=== PATIENT | male | born 1950 | race African-American/Black ===

== ENCOUNTER 2017-02-12 17:00 | Inpatient (IN) | payer OTHER ==
[2017-02-12] MEDS ORDERED: MAGNESIUM SULF 50% (8.12 MEQ/2 ML-1 GM VIAL) ONE (17:11)
[2017-02-12] MEDS ORDERED: ALBUTEROL SO4 2.5/IPRATROPIUM 0.5 INH SOL 3 ML VIAL.NEB. NEB ONE ×3 (17:11→23:09)
[2017-02-12] MEDS ORDERED: DEXAMETHASONE SOD PHOSPHATE 10 MG/1 ML VIAL ONE (17:11)
--- NOTE | 2017-02-12 17:14 | PDOC ---
Attending Attestation - HPI HPI: 02/12/17 18:01 66 year old male, with PMH of asthma, HTN, and prostate cancer (s/p radiation in 2010), who presents to the emergency room BIBA complaining of shortness of breath and chest tightness. - Physicial Exam PE: 02/12/17 18:41 Constitutional: Awake, alert, oriented. No acute distress. Head: Normocephalic. Atraumatic Eyes: PERRL. EOMI. Conjunctivae are not pale. ENT: Mucous membranes are moist and intact. Posterior pharynx without exudates or erythema. Uvula midline. Neck: Supple. Full ROM. No lymphadenopathy. Cardiovascular: Regular rate. Regular rhythm. S1, S2 regular. Distal pulses are 2+ and symmetric. Pulmonary/Chest: + Diffuse wheezing bilaterally. 90% pulse Ox on room air. No evidence of respiratory distress. No rales or rhonchi. Abdominal: Soft and non-distended. There is no tenderness. No rebound, guarding or rigidity. No organomegaly. No palpable masses. Good bowel sounds. Back: No CVA tenderness. Musculoskeletal: No edema. No cyanosis. No clubbing. Full range of motion in all extremities. No calf tenderness. Radial/pedal pulses are intact and 2+ bilaterally Skin: Skin is warm and dry. No petechiae. No purpura. Neurological: Alert and oriented to person, place, and time. Cranial nerves II -XII are grossly intact. Normal speech. Strength is grossly symmetric. No sensory deficits. Psychiatric: Good eye contact. Normal interaction, affect and behavior. <Maureen Hooker - Last Filed: 02/12/17 18:41> - Resident Resident Name: Neha Rudolph - ED Attending Attestation I have performed the following: I have examined & evaluated the patient, The case was reviewed & discussed with the resident, I agree w/resident's findings & plan, Exceptions are as noted - Medical Decision Making 02/12/17 17:14 I, Dr. Pretty Rivers, DO, attest that this document has been prepared under my direction and personally reviewed by me in its entirety. I further attest, that it accurately reflects all work, treatment, procedures and medical decision -making performed by me. 02/12/17 18:37 a/p: 66yo male with wheezing -hx of asthma and exposure to bleach today -received 2 duonebs, steroids, mag [employer] -low pulse ox and wheezing still present -will give another neb, received decadron 10mg [employer] -ivf hydration, will check labs, ekg, cxr -reassess 02/12/17 21:06 re-eval: pulse ox still 92 RA, still with wheezing poss early pna on xray, elevated WBC, will start abx, will need more nebs. will keep for obs 02/12/17 21:33 case discussed with the IM resident who accepts the patient to obs under Dr. Quiñones. <Pretty Rivers - Last Filed: 02/12/17 21:34> Discharge Disposition <Maureen Hooker - Last Filed: 02/12/17 18:41> - Discharge Dispostion Admit: Yes <Pretty Rivers - Last Filed: 02/12/17 21:34> - Diagnosis Shortness of breath, Asthma exacerbation - Discharge Dispostion Condition at time of disposition: Fair - Referrals Referrals: Sofi Jacob MD, MD [Primary Care Provider] - - Patient Instructions - Post Discharge Activity Heart Score/ECG Review - ECG Intrepretation Comment:: 02/12/17 18:39 sinus at 66, nl axis, nl interval, t wave inversions v2, no other acute <Pretty Rivers - Last Filed: 02/12/17 21:34>
[2017-02-12 17:22] VITALS: BMI 24.3
[2017-02-12] MEDS ORDERED: SODIUM CHLORIDE 0.9% 1000 ML INFUS.BAG IV ONE (17:49)
--- NOTE | 2017-02-12 17:49 | PDOC ---
History of Present Illness - General Chief Complaint: Asthma Stated Complaint: DIFF. BREATHING Time Seen by Provider: 02/12/17 17:11 History Source: Patient Exam Limitations: No Limitations - History of Present Illness Initial Comments: This is a 66 YOM with h/o asthma (triggers chemicals and allergies, no intubations/admissions/steroids in the past, no regular meds), HTN, and prostate CA s/p radiation in 2010, who was BIBA for SOB, wheezing, and bilateral chest tightness worsening since 3:30 pm. He used bleach to clean a bathroom this morning at 11:30am, which has been one of his asthma triggers in the past, but usually he has only mild and self-limited symptoms. He took no medications at home for his symptoms (ran out of albuterol long ago). He has not had an exacerbation this bad in decades. He has recently had symptoms of post-nasal drip, sneezing, and mild allergies but he denies any chest pain, jaw pain, arm pain, abdominal pain, palpitations, headache, dizziness, leg swelling , unexplained change in weight, fever, chills, nausea, vomiting, or diarrhea. He is followed by his PMD whom he last saw 2 months ago. Past History - Past Medical History Allergies/Adverse Reactions: Allergies Allergy/AdvReac Type Severity Reaction Status Date / Time No Known Allergies Allergy Verified 02/12/17 17:10 Home Medications: Ambulatory Orders Nifedipine [Procardia Xl] 60 mg PO DAILY 02/12/17 Albuterol Sulfate Inhaler - [Ventolin HFA Inhaler -] 1 - 2 inh PO Q4H PRN #1 inhaler 02/15/17 Prednisone 10 mg PO DAILY #16 tablet 02/15/17 Asthma: Yes COPD: No HTN: Yes - Suicide/Smoking/Psychosocial Hx Smoking History: Never smoked Hx Alcohol Use: No Drug/Substance Use Hx: No Substance Use Type: None Review of Systems - Review of Systems Constitutional: No: Chills, Fever, Unexplained wgt Loss HEENTM: Yes: Other (post-nasal drip, sneezing, allergies). No: Nose Congestion , Throat Pain Respiratory: Yes: Shortness of Breath, Wheezing. No: Cough Cardiac (ROS): Yes: Chest Tightness. No: Palpitations ABD/GI: No: Constipated, Diarrhea, Nausea, Vomiting : No: Burning, Dysuria Musculoskeletal: No: Back Pain, Neck Pain Integumentary: No: Bruising, Rash Neurological: No: Headache, Numbness, Tingling, Weakness, Dizziness Endocrine: No: Unexplained Weight Gain, Unexplained Weight Loss *Physical Exam - Vital Signs Last Vital Signs Temp Pulse Resp BP Pulse Ox 98.1 F 80 18 168/78 100 02/12/17 17:12 02/12/17 17:12 02/12/17 17:12 02/12/17 17:12 02/12/17 17:12 - Physical Exam General Appearance: Yes: Nourished, Appropriately Dressed, Other (conversive and appropriate, answering questions, no significant respiratory distress). No : Apparent Distress HEENT: positive: EOMI, ANGELA, Normal Voice, Hearing Grossly Normal. negative: Scleral Icterus (R), Scleral Icterus (L), Nasal Congestion Neck: positive: Trachea midline, Supple. negative: Tender, Rigid Respiratory/Chest: positive: Other (pulse oxygenation 90% on 2 LPM via NC initially; improves to 94% on NC; bilateral expiratory wheezing with L>R, slightly tachypneic). negative: Chest Tender, Normal Breath Sounds, Respiratory Distress Cardiovascular: positive: Regular Rhythm, Regular Rate. negative: Edema, Murmur Gastrointestinal/Abdominal: positive: Normal Bowel Sounds, Soft, Protuberent. negative: Tender, Organomegaly, Pulsatile Mass, Guarding Musculoskeletal: positive: Normal Inspection. negative: Decreased Range of Motion, Vertebral Tenderness Extremity: positive: Normal Capillary Refill, Normal Inspection, Normal Range of Motion. negative: Tender, Cyanosis Integumentary: positive: Normal Color, Dry, Warm, Swelling (grossly). 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 Rarely uses albuterol and did not use any medications for asthma today. Given 2x breathing treatments and Decadron in the field. Given Prednisone PO as well. On exam he is 90% on 2 LPM and wheezy on L>R. Ordered is additional DuoNeb, also CBC, CMP, EKG, CXR. No acute disease process on EKG. Care is signed out to Dr. Dumont awaiting workup results. *DC/Admit/Observation/Transfer Diagnosis at time of Disposition: Shortness of breath - Prescriptions - Referrals - Patient Instructions - Post Discharge Activity
[2017-02-12 18:33] LABS: MCH 28.7 pg (25.7-33.7); MCHC 32.5 g/dl (32.0-35.9); MEAN CELL VOLUME 88.4 fl (80-96); MEAN PLT VOLUME 11.5 fl (7.5-11.1); PLATELET COUNT 133 K/MM3 (134-434); RDW 13.8 % (11.9-15.9); WHITE BLOOD COUNT 15.4 K/mm3 (4.0-10.0)
[2017-02-12] MEDS ORDERED: ALBUTEROL SO4 0.5 % INH SOLN 2.5 MG/0.5 ML VIAL.NEB. NEB ONE (19:06)
[2017-02-12 19:12] LABS: ALBUMIN 4.1 g/dl (3.4-5.0); ANION GAP 8 (8-16); BILIRUBIN,TOTAL 0.8 mg/dL (0.2-1.0); CALCIUM 8.6 mg/dL (8.5-10.1); CO2 27 mmol/L (21-32); CREATININE 0.7 mg/dL (0.7-1.3); GLUCOSE,RANDOM 142 mg/dL (74-106); SGOT/AST 20 U/L (15-37); SGPT/ALT 26 U/L (12-78); TOT PROT 7.9 g/dl (6.4-8.2)
[2017-02-12 19:13] LABS: ALK PHOS 92 U/L (45-117)
[2017-02-12] MEDS ORDERED: ALBUTEROL SO4 0.083% IH SOL 2.5 MG/3 ML VIAL.NEB. NEB ONE ×2 (19:18→21:07)
[2017-02-12 19:41] LABS: TOTAL CELLS COUNTED 100
[2017-02-12 19:43] LABS: PLATELET ESTIMATE SLT DECREASE
[2017-02-12] MEDS ORDERED: LEVOFLOXACIN 750 MG IVPB 750 MG/150 ML BAG IVPB ONE ×2 (19:55→21:11)
--- NOTE | 2017-02-12 21:59 | HP ---
CHIEF COMPLAINT: SOB and chest tightness x1 day PCP: Dr Phillips ([facility])- HISTORY OF PRESENT ILLNESS: 66 year old male, with PMH of asthma, HTN, and prostate cancer (s/p radiation in 2010), presenting with SOB and chest tightness. Patient noticed worsening chest tightness and SOB similar to what he experiences during his asthma exacerbations, after cleaning the bathroom and inhaling bleach. He had associated cough, productive of yellowish substance, non bloody. The SOB was not relieved by position, lasted for a couple of hours prior to presentation. No associated chest pain, no associated leg swelling, or fever, no recent sick contacts. No n/v/ change in bowel habits. Patient had been out in the rain 3 days earlier and had a mild precipitation that resolved on its own, without medications, but today, it did not resolve on its own. Patient has had mild asthma with his last exacerbation in September 2016 (relieved with inhaler) and prior to that, December 2015. Patient is currently not compliant on any medication. Patient has not received flu vaccine or pnuemococcal vaccine and has never had colonoscopy done. ER course was notable for: (1) WBC- 15.4, with left shift (2)CXR- not read, likely R lower lung infiltrate (3) iv Levoflox, Duonebs, ventolin, Mg, iv decadron -given in ED 4) EKG- Normal sinus rhythm, [id number] Recent Travel: None PAST MEDICAL HISTORY: asthma HTN prostate cancer (s/p radiation in 2010) PAST SURGICAL HISTORY: Social History: Lives with Smoking: Never Alcohol: Never Drugs: Never Family History: Mother in her 60s of asthma Father at 92 was healthy Allergies No Known Allergies Allergy (Verified 02/12/17 17:10) HOME MEDICATIONS: Home Medications Medication Instructions Recorded Nifedipine [Procardia Xl] 60 mg PO DAILY 02/12/17 REVIEW OF SYSTEMS CONSTITUTIONAL: Absent: fever, chills, diaphoresis, generalized weakness, malaise, loss of appetite, weight change HEENT: Absent: rhinorrhea, nasal congestion, throat pain, throat swelling, difficulty swallowing, mouth swelling, ear pain, eye pain, visual changes CARDIOVASCULAR: Absent: chest pain, syncope, palpitations, irregular heart rate, lightheadedness , peripheral edema RESPIRATORY: Absent: cough, shortness of breath, dyspnea with exertion, orthopnea, wheezing, stridor, hemoptysis GASTROINTESTINAL: Absent: abdominal pain, abdominal distension, nausea, vomiting, diarrhea, constipation, melena, hematochezia GENITOURINARY: Absent: dysuria, frequency, urgency, hesitancy, hematuria, flank pain, genital pain MUSCULOSKELETAL: Absent: myalgia, arthralgia, joint swelling, back pain, neck pain SKIN: Absent: rash, itching, pallor HEMATOLOGIC/IMMUNOLOGIC: Absent: easy bleeding, easy bruising, lymphadenopathy, frequent infections ENDOCRINE: Absent: unexplained weight gain, unexplained weight loss, heat intolerance, cold intolerance NEUROLOGIC: Absent: headache, focal weakness or paresthesias, dizziness, unsteady gait, seizure, mental status changes, bladder or bowel incontinence PSYCHIATRIC: Absent: anxiety, depression, suicidal or homicidal ideation, hallucinations. PHYSICAL EXAMINATION Vital Signs - 24 hr 02/12/17 02/12/17 17:12 18:28 Temperature 98.1 F Pulse Rate 80 Pulse Rate [ 85 Apical] Respiratory 18 18 Rate Blood Pressure 168/78 Blood Pressure 160/82 [Left Arm] O2 Sat by Pulse 100 98 Oximetry (%) GENERAL: Awake, alert, and fully oriented, in no acute respiratory distress, spoke in full sentences. EYES: Pupils equal, round and reactive to light, sclera anicteric, conjunctiva clear. EARS, NOSE, THROAT: Ears normal, oropharynx clear without exudates. Moist mucous membranes. NECK: supple, no JVD. LUNGS: Breath sounds present, expiratory wheezes+, HEART: Regular rate and rhythm, normal S1 and S2 without murmur, rub or gallop. ABDOMEN: Soft, nontender, not distended, normoactive bowel sounds, MUSCULOSKELETAL: Normal range of motion at all joints. No bony deformities or tenderness. No CVA tenderness. UPPER EXTREMITIES: 2+ pulses, warm, well-perfused. No cyanosis. No clubbing. No peripheral edema. LOWER EXTREMITIES: 2+ pulses, warm, well-perfused. No calf tenderness. No peripheral edema. NEUROLOGICAL: Cranial nerves II-XII intact. Normal speech. Gait not observed PSYCHIATRIC: Cooperative. Good eye contact. Appropriate mood and affect. SKIN: Warm, dry, Laboratory Results - last 24 hr 02/12/17 02/12/17 18:14 18:14 WBC 15.4 H RBC 4.65 Hgb 13.4 Hct 41.1 MCV 88.4 MCH 28.7 MCHC 32.5 RDW 13.8 Plt Count 133 L MPV 11.5 H Total Counted 100 Neutrophils % No Result Required. Neutrophils % (Manual) 90.0 H Band Neutrophils % 6.0 Lymphocytes % No Result Required. Lymphocytes % (Manual) 2.0 L Monocytes % (Manual) 2 L Other Cell Type Platelet Estimate Slt decrease Platelet Comment Sodium 137 Potassium 3.9 Chloride 102 Carbon Dioxide 27 Anion Gap 8 BUN 8 Creatinine 0.7 Creat Clearance w eGFR > 60 Random Glucose 142 H Calcium 8.6 Total Bilirubin 0.8 AST 20 ALT 26 Alkaline Phosphatase 92 Total Protein 7.9 Albumin 4.1 ASSESSMENT/PLAN: 66 year old male, with PMH of asthma, HTN, and prostate cancer (s/p radiation in 2010), presenting with SOB and chest tightness being admitted for asthma exacerbation. #Acute asthma exacerbation: Scattered Expiratory wheezes Iv solumedrol 40mg daily Ventolin nebs 0.083% Q1H Duonebs daily Resp therapy Daily peak flow IV Levoflox 750mg Monitor #Leucocytosis R/O superimposed PNA Productive cough Sputum culture Flu swab Blood culture #HTN Has not been compliant on procardia Resume procardia 60mg daily #Ca prostate Received radiation therapy No new C/o #FEN Oral fluids Monitor lytes and replete as needed Low sodium diet #Prophylaxis Early ambulation #Dispo Obs med Surg Visit type - Emergency Visit Emergency Visit: Yes ED Registration Date: 02/12/17 Care time: The patient presented to the Emergency Department on the above date and was hospitalized for further evaluation of their emergent condition. - New Patient This patient is new to me today: Yes Date on this admission: 02/13/17 - Critical Care Critical Care patient: No
[2017-02-12] MEDS ORDERED: ALBUTEROL SO4 0.083% IH SOL 2.5 MG/3 ML VIAL.NEB. NEB PRN (23:08)
[2017-02-12] MEDS ORDERED: methylPREDNISolone NA SUCC 40 MG/1 ML VIAL IVPUSH SCH (23:45)
--- NOTE | 2017-02-13 00:51 | PN ---
Teaching Attending Note Name of Resident: Caterina Olivarez ATTENDING PHYSICIAN STATEMENT I saw and evaluated the patient. I reviewed the resident's note and discussed the case with the resident. I agree with the resident's findings and plan as documented. SUBJECTIVE: 66 year old male with life long history of asthma presents with sob , wheezing and cough x 4 days No fevers Denies prior history of intubations does not use any meds for asthma control OBJECTIVE: Vital Signs Temperature 98.1 F 02/12/17 17:12 Pulse Rate 85 02/12/17 18:28 Respiratory Rate 18 02/12/17 18:28 Blood Pressure 160/82 02/12/17 18:28 O2 Sat by Pulse Oximetry (%) 98 02/12/17 18:28 LUNGS - wheezing b/l EXT no edema Abd soft NT CBC, BMP 02/12/17 18:14 02/12/17 18:14 CXR RLL infiltrate ASSESSMENT AND PLAN: 1. Acute exacerbation of asthma with superimposed RLL CAP - steroids IV - peak flow daily - IVAB - O2 2. HTN - suboptimal - resume procardia and monitor BP
[2017-02-13 05:39] LABS: BASOPHIL 0.2 % (0-2.0); MCHC 32.5 g/dl (32.0-35.9); MEAN CELL VOLUME 89.4 fl (80-96); MEAN PLT VOLUME 11.6 fl (7.5-11.1); NEUTROPHILS 86.9 % (42.8-82.8); PLATELET COUNT 135 K/MM3 (134-434); RDW 13.5 % (11.9-15.9); WHITE BLOOD COUNT 12.4 K/mm3 (4.0-10.0)
[2017-02-13] MEDS ORDERED: ALBUTEROL SO4 2.5/IPRATROPIUM 0.5 INH SOL 3 ML VIAL.NEB. NEB ONE (06:07)
[2017-02-13 06:15] LABS: ALBUMIN 3.7 g/dl (3.4-5.0); ANION GAP 11 (8-16); BILIRUBIN,TOTAL 0.6 mg/dL (0.2-1.0); CALCIUM 8.7 mg/dL (8.5-10.1); CO2 23 mmol/L (21-32); CREATININE 0.8 mg/dL (0.7-1.3); GLUCOSE,RANDOM 136 mg/dL (74-106); MAGNESIUM 2.4 mg/dL (1.8-2.4); PHOSPHOROUS 2.2 mg/dL (2.5-4.9); SGOT/AST 24 U/L (15-37); SGPT/ALT 25 U/L (12-78); TOT PROT 7.5 g/dl (6.4-8.2)
[2017-02-13 06:16] LABS: ALK PHOS 82 U/L (45-117)
[2017-02-13] MEDS ORDERED: LEVOFLOXACIN 750 MG IVPB 750 MG/150 ML BAG IVPB ONE (06:29)
[2017-02-13] MEDS ORDERED: ALBUTEROL SO4 2.5/IPRATROPIUM 0.5 INH SOL 3 ML VIAL.NEB. NEB PRN (06:43)
[2017-02-13] MEDS ORDERED: methylPREDNISolone NA SUCC 40 MG/1 ML VIAL IVPUSH SCH ×2 (06:45→08:11)
[2017-02-13] MEDS ORDERED: methylPREDNISolone NA SUCC 40 MG/1 ML VIAL ONE (07:05)
[2017-02-13] MEDS ORDERED: LEVOFLOXACIN 750 MG IVPB 750 MG/150 ML BAG IVPB SCH (08:00)
[2017-02-13] MEDS: NIFEdipine E.R 60 MG TABLET (UD) PO SCH (09:26)
[2017-02-13] MEDS ORDERED: FLU VACCINE QUAD 60 MCG/0.5 ML (MDV 17-18) IM ONE (10:00)
--- NOTE | 2017-02-13 10:04 | EKG ---
Test Reason : Blood Pressure : / mmHG Vent. Rate : 068 BPM Atrial Rate : 068 BPM P-R Int : 162 ms QRS Dur : 094 ms QT Int : 398 ms P-R-T Axes : 044 -16 056 degrees QTc Int : 423 ms NORMAL SINUS RHYTHM NORMAL ECG NO PREVIOUS ECGS AVAILABLE Confirmed by DENIA COVINGTON MD ([id number]) on 02/13/2017 10:04:00 AM Referred By: Confirmed By:DENIA COVINGTON MD
--- NOTE | 2017-02-13 10:35 | CONSULT ---
Consultation: Pulmonary consult, resident REQUESTING PROVIDER: Dominga Olsen Do CONSULT REQUEST: We have been asked to medically evaluate this patient for ( Asthma exacerbation ). HISTORY OF PRESENT ILLNESS: This is a 66 YO M with h/o asthma (triggers chemicals and allergies, no intubations/admissions/steroids in the past, no regular meds), HTN, and prostate CA s/p radiation in 2010, who was BIBA for SOB, wheezing, and bilateral chest tightness worsening since 3:30 pm. He used bleach to clean a bathroom this morning at 11:30am, which has been one of his asthma triggers in the past, but usually he has only mild and self-limited symptoms. He took no medications at home for his symptoms (ran out of albuterol long ago). He has not had an exacerbation this bad in decades. He has recently had symptoms of post-nasal drip, sneezing, and mild allergies but he denies any chest pain, jaw pain, arm pain, abdominal pain, palpitations, headache, dizziness, leg swelling , unexplained change in weight, fever, chills, nausea, vomiting, or diarrhea. He is followed by his PMD whom he last saw 2 months ago. REVIEW OF SYSTEMS: CONSTITUTIONAL: Absent: fever, chills, diaphoresis, generalized weakness, malaise, loss of appetite, weight change HEENT: Absent: rhinorrhea, nasal congestion, throat pain, throat swelling, difficulty swallowing, mouth swelling, ear pain, eye pain, visual changes CARDIOVASCULAR: Absent: chest pain, syncope, palpitations, irregular heart rate, lightheadedness , peripheral edema RESPIRATORY: Absent: cough, shortness of breath, dyspnea with exertion, orthopnea, wheezing, stridor, hemoptysis GASTROINTESTINAL: Absent: abdominal pain, abdominal distension, nausea, vomiting, diarrhea, constipation, melena, hematochezia GENITOURINARY: Absent: dysuria, frequency, urgency, hesitancy, hematuria, flank pain, genital pain MUSCULOSKELETAL: Absent: myalgia, arthralgia, joint swelling, back pain, neck pain SKIN: Absent: rash, itching, pallor HEMATOLOGIC/IMMUNOLOGIC: Absent: easy bleeding, easy bruising, lymphadenopathy, frequent infections ENDOCRINE: Absent: unexplained weight gain, unexplained weight loss, heat intolerance, cold intolerance NEUROLOGIC: Absent: headache, focal weakness or paresthesias, dizziness, unsteady gait, seizure, mental status changes, bladder or bowel incontinence PSYCHIATRIC: Absent: anxiety, depression, suicidal or homicidal ideation, hallucinations. PHYSICAL EXAMINATION Vital Signs - 24 hr 02/12/17 02/12/17 02/12/17 17:12 18:28 23:06 Temperature 98.1 F Pulse Rate 80 Pulse Rate [ 85 Apical] Respiratory 18 18 18 Rate Blood Pressure 168/78 Blood Pressure 160/82 [Left Arm] O2 Sat by Pulse 100 98 98 Oximetry (%) 02/13/17 02/13/17 02/13/17 00:24 06:46 08:19 Temperature 98.7 F 98.3 F 97.8 F Pulse Rate Pulse Rate [ 72 67 76 Apical] Respiratory 18 18 18 Rate Blood Pressure Blood Pressure 147/77 138/62 139/54 [Left Arm] O2 Sat by Pulse 99 98 Oximetry (%) GENERAL: Awake, alert, and fully oriented, in no acute distress. HEAD: Normal with no signs of trauma. EYES: Pupils equal, round and reactive to light, extraocular movements intact, sclera anicteric, conjunctiva clear. No lid lag. EARS, NOSE, THROAT: Ears normal, nares patent, oropharynx clear without exudates. Moist mucous membranes. NECK: Normal range of motion, supple without lymphadenopathy, JVD, or masses. LUNGS: Breath sounds equal, clear to auscultation bilaterally. No wheezes, and no crackles. No accessory muscle use. HEART: Regular rate and rhythm, normal S1 and S2 without murmur, rub or gallop. ABDOMEN: Soft, nontender, not distended, normoactive bowel sounds, no guarding, no rebound, no masses. No hepatomegaly or splenomegaly. MUSCULOSKELETAL: Normal range of motion at all joints. No bony deformities or tenderness. No CVA tenderness. UPPER EXTREMITIES: 2+ pulses, warm, well-perfused. No cyanosis. No clubbing. Cap refill <2 seconds. No peripheral edema. LOWER EXTREMITIES: 2+ pulses, warm, well-perfused. No calf tenderness. No peripheral edema. NEUROLOGICAL: Cranial nerves II-XII intact. Normal speech. Normal gait. PSYCHIATRIC: Cooperative. Good eye contact. Appropriate mood and affect. SKIN: Warm, dry, normal turgor, no rashes or lesions noted. Laboratory Results - last 24 hr 02/12/17 02/12/17 02/13/17 18:14 18:14 05:15 WBC 15.4 H 12.4 H RBC 4.65 4.50 Hgb 13.4 13.1 Hct 41.1 40.2 MCV 88.4 89.4 MCH 28.7 29.0 MCHC 32.5 32.5 RDW 13.8 13.5 Plt Count 133 L 135 MPV 11.5 H 11.6 H Total Counted 100 Neutrophils % No Result Required. 86.9 H Neutrophils % (Manual) 90.0 H Band Neutrophils % 6.0 Lymphocytes % No Result Required. 7.6 L Lymphocytes % (Manual) 2.0 L Monocytes % 5.3 Monocytes % (Manual) 2 L Eosinophils % 0.0 Basophils % 0.2 Other Cell Type Platelet Estimate Slt decrease Platelet Comment Sodium 137 Potassium 3.9 Chloride 102 Carbon Dioxide 27 Anion Gap 8 BUN 8 Creatinine 0.7 Creat Clearance w eGFR > 60 Random Glucose 142 H Calcium 8.6 Phosphorus Magnesium Total Bilirubin 0.8 AST 20 ALT 26 Alkaline Phosphatase 92 Total Protein 7.9 Albumin 4.1 02/13/17 05:15 WBC RBC Hgb Hct MCV MCH MCHC RDW Plt Count MPV Total Counted Neutrophils % Neutrophils % (Manual) Band Neutrophils % Lymphocytes % Lymphocytes % (Manual) Monocytes % Monocytes % (Manual) Eosinophils % Basophils % Other Cell Type Platelet Estimate Platelet Comment Sodium 139 Potassium 3.7 Chloride 105 Carbon Dioxide 23 Anion Gap 11 BUN 10 D Creatinine 0.8 Creat Clearance w eGFR > 60 Random Glucose 136 H Calcium 8.7 Phosphorus 2.2 L Magnesium 2.4 Total Bilirubin 0.6 D AST 24 ALT 25 Alkaline Phosphatase 82 Total Protein 7.5 Albumin 3.7 Active Medications Generic Name Dose Route Start Last Admin Trade Name Freq PRN Reason Stop Dose Admin Albuterol Sulfate 1 amp 02/12/17 23:08 02/13/17 03:53 Ventolin 0.083% Nebulizer Soln - NEB 1 amp Q1H PRN Administration SHORT OF BREATH/WHEEZING Albuterol/Ipratropium 1 amp 02/13/17 06:43 02/13/17 07:43 Duoneb - NEB 1 amp Q4H PRN Administration SHORTNESS OF BREATH Levofloxacin 750 mg in 150 mls @ 100 mls/hr 02/13/17 08:00 02/13/17 08:09 Levaquin 750 Mg Premixed Ivpb - IVPB 02/14/17 07:59 100 mls/hr DAILY@0800 DALTON Administration Methylprednisolone Sodium Succinate 40 mg 02/13/17 08:11 02/13/17 09:23 Solu-Medrol - IVPUSH Not Given BID DALTON Nifedipine 60 mg 02/13/17 10:00 02/13/17 09:26 Procardia Xl - PO 60 mg DAILY DALTON Administration CBC, BMP 02/13/17 05:15 02/13/17 05:15 CXR, 02/13/2017 : No acute pathology, no masses, no hilar lymphadenopathy. ASSESSMENT/PLAN: STEROIDS/BRONCHODILATORS/O2 CLOSE MONITORING NO NEED FOR ANTIBIOTICS Dispo: We will continue to follow the patient. Thank you for this consultative opportunity. Visit type - Emergency Visit Emergency Visit: Yes ED Registration Date: 02/13/17 Care time: The patient presented to the Emergency Department on the above date and was hospitalized for further evaluation of their emergent condition. - New Patient This patient is new to me today: Yes Date on this admission: 02/13/17 - Critical Care Critical Care patient: No
--- NOTE | 2017-02-13 17:08 | CON.PULM ---
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 PRESENTST TO ER WITH COUGH/WHEEZE/SOB AFTER CLEANING HIS BATHROOM WITH AMMONIA WITHOUT PROPER VENTILATION AND NOTED ABOVE SYMPTOMS. - History Source History Provided By: Patient, Medical Record Limitations to Obtaining History: No Limitations - Past Medical History BUSINESS BANKER: No: Alzheimer's Cardio/Vascular: Yes: HTN. No: AFIB Pulmonary: Yes: Asthma Gastrointestinal: No: Ascites Hepatobiliary: No: Cirrhosis Renal/: No: Renal Failure Heme/Onc: No: Anemia Infectious Disease: No: AIDS Psych: No: Addictions Musculoskeletal: No: Bursitis Rheumatology: No: Fibromyalgia ENT: No: Allergic Rhinitis Endocrine: No: Diabetes Mellitus - Past Surgical History Past Surgical History: Yes: None (PATIENT HAD XRT FOR PROSTATE CA) - Alcohol/Substance Use Hx Alcohol Use: No - Smoking History Smoking history: Never smoked Have you smoked in the past 12 months: No - Social History Usual Living Arrangement: With Spouse ADL: Independent Place of : Other History of Recent Travel: No Home Medications - Allergies Allergies/Adverse Reactions: Allergies Allergy/AdvReac Type Severity Reaction Status Date / Time No Known Allergies Allergy Verified 02/12/17 17:10 - Home Medications Home Medications: Ambulatory Orders Nifedipine [Procardia Xl] 60 mg PO DAILY 02/12/17 Family Disease History - Family Disease History Family History: Unremarkable Review of Systems - Review of Systems Constitutional: denies: Fever Eyes: denies: Blurred Vision HENT: denies: Difficult Swallowing Neck: denies: Decreased ROM Cardiovascular: denies: Chest Pain Respiratory: reports: Cough, Exercise Intolerance, SOB, SOB on Exertion, Wheezing. denies: Hemoptysis Gastrointestinal: denies: Abdominal Pain Physical Exam Vital Sings: Vital Signs Temperature 97.8 F 02/13/17 13:17 Pulse Rate 90 02/13/17 15:55 Respiratory Rate 18 02/13/17 15:55 Blood Pressure 134/78 02/13/17 15:55 O2 Sat by Pulse Oximetry (%) 99 02/13/17 15:55 Constitutional: Yes: Anxious Eyes: Yes: EOM Intact HENT: Yes: Normocephalic Neck: Yes: Trachea Midline Cardiovascular: Yes: Regular Rate and Rhythm Respiratory: Yes: Wheezes Gastrointestinal: Yes: Normal Bowel Sounds Renal/: Yes: WNL Breast(s): Yes: WNL Musculoskeletal: Yes: WNL Extremities: Yes: WNL Neurological: Yes: Alert Labs: CBC, BMP 02/13/17 05:15 02/13/17 05:15 REST REVIEWED Imaging - Results Chest X-ray: Report Reviewed, Image Reviewed Problem List - Problems (1) Bronchiolitis Code(s): J21.9 - ACUTE BRONCHIOLITIS, UNSPECIFIED (2) Asthma exacerbation Code(s): J45.901 - UNSPECIFIED ASTHMA WITH (ACUTE) EXACERBATION Assessment/Plan STEROIDS/BRONCHODILATORS/O2 CLOSE MONITORING NO NEED FOR ANTIBIOTICS Maximino RODRIGUEZ MD
[2017-02-13] MEDS: ALBUTEROL SO4 2.5/IPRATROPIUM 0.5 INH SOL 3 ML VIAL.NEB. NEB SCH ×2 (18:18→22:30)
[2017-02-13] MEDS ORDERED: PNEUMOC 13-VAL CONJ-DIP CRM/PF 0.5 ML DISP.SYRIN IM ONE (18:28)
[2017-02-13] MEDS: methylPREDNISolone NA SUCC 40 MG/1 ML VIAL IVPUSH SCH ×2 (18:35→21:33)
[2017-02-14] MEDS: ALBUTEROL SO4 2.5/IPRATROPIUM 0.5 INH SOL 3 ML VIAL.NEB. NEB SCH ×6 (02:30→23:25)
[2017-02-14] MEDS: methylPREDNISolone NA SUCC 40 MG/1 ML VIAL IVPUSH SCH ×4 (03:58→20:46)
[2017-02-14] MEDS: NIFEdipine E.R 60 MG TABLET (UD) PO SCH ×2 (08:48→09:14)
--- NOTE | 2017-02-14 11:20 | PN ---
Progress Note (short form) - Note Progress Note: PULMONARY VSS/AFEBRILE SUBJECTIVE IMPROVEMENT WANTS TO GO HOME ANICTERIC BIBASILAR EXP RHONCHI S1S2 BS+ NO EDEMA MEDS/NOTES/MICRO REVIEWED PEAK FLOW 240L/M (1) Bronchiolitis Code(s): J21.9 - ACUTE BRONCHIOLITIS, UNSPECIFIED (2) Asthma exacerbation Code(s): J45.901 - UNSPECIFIED ASTHMA WITH (ACUTE) EXACERBATION STEROIDS SAME DOSE/BRONCHODILATORS/O2 CLOSE MONITORING/PEAK FLOW NO NEED FOR ANTIBIOTICS LIKELY D/C IN AM R JENNIFER LAWRENCE Problem List - Problems (1) Bronchiolitis Code(s): J21.9 - ACUTE BRONCHIOLITIS, UNSPECIFIED (2) Asthma exacerbation Code(s): J45.901 - UNSPECIFIED ASTHMA WITH (ACUTE) EXACERBATION
--- NOTE | 2017-02-14 15:22 | PN ---
Progress Note (short form) - Note Progress Note: c/o cough. today became productive of yellow sputum. states he has trouble breathing during his coughing episodes. no CP, fever,chills, N/V/C/D, RIDDLE or blurred vision states he has never been hospitalized for asthma symptoms Current Medications Generic Name Dose Route Start Last Admin Trade Name Freq PRN Reason Stop Dose Admin Albuterol Sulfate 1 amp 02/12/17 23:08 02/13/17 03:53 Ventolin 0.083% Nebulizer Soln - NEB 1 amp Q1H PRN Administration SHORT OF BREATH/WHEEZING Albuterol/Ipratropium 1 amp 02/13/17 18:00 02/14/17 10:26 Duoneb - NEB 1 amp Q4HPO DALTON Administration Methylprednisolone Sodium Succinate 40 mg 02/13/17 17:00 02/14/17 08:48 Solu-Medrol - IVPUSH 40 mg Q6H-IV DALTON Administration Nifedipine 60 mg 02/13/17 10:00 02/14/17 09:14 Procardia Xl - PO Not Given DAILY DALTON Last Vital Signs Temp Pulse Resp BP Pulse Ox 99.3 F 118 H 20 151/76 93 L 02/14/17 14:00 02/14/17 14:00 02/14/17 14:00 02/14/17 14:00 02/14/17 09:00 General NAD CV s1 s2 RRR no murmur/rub/gallop Lungs diffuse wheezing R>L no crackles Abdomen soft NT/ND Extremities no pedal edema CBCD WBC 12.4 K/mm3 (4.0-10.0) H 02/13/17 05:15 RBC 4.50 M/mm3 (4.00-5.60) 02/13/17 05:15 Hgb 13.1 GM/dL (11.7-16.9) 02/13/17 05:15 Hct 40.2 % (35.4-49) 02/13/17 05:15 MCV 89.4 fl (80-96) 02/13/17 05:15 MCHC 32.5 g/dl (32.0-35.9) 02/13/17 05:15 RDW 13.5 % (11.9-15.9) 02/13/17 05:15 Plt Count 135 K/MM3 (134-434) 02/13/17 05:15 MPV 11.6 fl (7.5-11.1) H 02/13/17 05:15 CMP Sodium 139 mmol/L (136-145) 02/13/17 05:15 Potassium 3.7 mmol/L (3.5-5.1) 02/13/17 05:15 Chloride 105 mmol/L (98-107) 02/13/17 05:15 Carbon Dioxide 23 mmol/L (21-32) 02/13/17 05:15 Anion Gap 11 (8-16) 02/13/17 05:15 BUN 10 mg/dL (7-18) D 02/13/17 05:15 Creatinine 0.8 mg/dL (0.7-1.3) 02/13/17 05:15 Creat Clearance w eGFR > 60 (>60) 02/13/17 05:15 Calcium 8.7 mg/dL (8.5-10.1) 02/13/17 05:15 Total Bilirubin 0.6 mg/dL (0.2-1.0) D 02/13/17 05:15 AST 24 U/L (15-37) 02/13/17 05:15 ALT 25 U/L (12-78) 02/13/17 05:15 Alkaline Phosphatase 82 U/L (45-117) 02/13/17 05:15 Total Protein 7.5 g/dl (6.4-8.2) 02/13/17 05:15 Albumin 3.7 g/dl (3.4-5.0) 02/13/17 05:15 A/P 66 yo M with PMH ashtma, HTN and prostate ca s/p RTx presented to the ER with SOB and chest tightness after bleach exposure 1. Acute on chronic asthma exacerbation- clinically improved. CXR negative for acute infiltrate. saturating 92% on RA which improves to 95% with 2L NC. on Solumedrol 40mg Q6H, standing nebs. encouraged pt to ambulate to assess breathing status. off abx. pulmonary on board. Influenza neg. cx negative 2. HTN- uncontrolled. at time of assessment HR 78 SBP 140. states he is always controlled on his regimen. may be due to steroids. will cont to monitor for now. 3. hypophosphatemia- neutraphos 4. prostate ca 5. DVT ppx- will start lovenox Visit type - Emergency Visit Emergency Visit: Yes ED Registration Date: 02/13/17 Care time: The patient presented to the Emergency Department on the above date and was hospitalized for further evaluation of their emergent condition. - New Patient This patient is new to me today: Yes Date on this admission: 02/14/17 - Critical Care Critical Care patient: No - Discharge Referral Referred to [facility] Med P.C.: No
[2017-02-14] MEDS ORDERED: NAPH,MB-DB/K PH,MBDB POWDER PACKET PO ONE (15:47)
[2017-02-14] MEDS ORDERED: ALBUTEROL SO4 0.083% IH SOL 2.5 MG/3 ML VIAL.NEB. NEB PRN (15:49)
[2017-02-14] MEDS: ENOXAPARIN NA (PORCINE) 40 MG/0.4 ML DISP.SYRIN SQ SCH (16:49)
[2017-02-14] MEDS ORDERED: PT OWN MED DRAWER 7, Y5N ONE (17:07)
[2017-02-15] MEDS: methylPREDNISolone NA SUCC 40 MG/1 ML VIAL IVPUSH SCH ×2 (02:21→09:10)
[2017-02-15] MEDS: ALBUTEROL SO4 2.5/IPRATROPIUM 0.5 INH SOL 3 ML VIAL.NEB. NEB SCH ×3 (02:30→09:34)
[2017-02-15] MEDS ORDERED: PT OWN MED DRAWER 7, Y5N ONE (09:07)
[2017-02-15] MEDS: ENOXAPARIN NA (PORCINE) 40 MG/0.4 ML DISP.SYRIN SQ SCH (09:10)
[2017-02-15] MEDS: NIFEdipine E.R 60 MG TABLET (UD) PO SCH (09:11)
--- NOTE | 2017-02-15 11:01 | PN ---
Progress Note (short form) - Note Progress Note: PULMONARY VSS/AFEBRILE SUBJECTIVE IMPROVEMENT WANTS TO GO HOME ANICTERIC RIGHT BASE RHONCHI S1S2 BS+ NO EDEMA MEDS/NOTES/MICRO REVIEWED PEAK FLOW 240L/M (1) Bronchiolitis Code(s): J21.9 - ACUTE BRONCHIOLITIS, UNSPECIFIED (2) Asthma exacerbation Code(s): J45.901 - UNSPECIFIED ASTHMA WITH (ACUTE) EXACERBATION STEROIDS TAPER AN OUTPATIENT BRONCHODILATORS/ OK TO D/C R JENNIFER LAWRENCE Problem List - Problems (1) Bronchiolitis Code(s): J21.9 - ACUTE BRONCHIOLITIS, UNSPECIFIED (2) Asthma exacerbation Code(s): J45.901 - UNSPECIFIED ASTHMA WITH (ACUTE) EXACERBATION
[2017-02-15 11:11] VITALS: BP 140/88; PULSE 94; TEMP 98.7
[2017-02-15] MEDS ORDERED: predniSONE 20 MG TABLET (UD) PO SCH (11:15)
--- NOTE | 2017-02-15 11:40 | DS ---
Physical Exam: SUBJECTIVE: Patient seen and examined. Feels improved. states cough is improving. denies CP, fever, chills, N/V/C/D OBJECTIVE: Vital Signs Period Temp Pulse Resp BP Sys/Hernandez Pulse Ox Last 24 Hr 97.7 F-99.3 F 90-118 20-20 124-156/74-88 92-93 PHYSICAL EXAM GENERAL: The patient is awake, alert, and fully oriented, in no acute distress. HEAD: Normal with no signs of trauma. EYES: PERRL, extraocular movements intact, sclera anicteric, conjunctiva clear. ENT: Ears normal, nares patent, oropharynx clear without exudates, moist mucous membranes. NECK: Trachea midline, full range of motion, supple. LUNGS: wheezing RUL. Breath sounds equal, no crackles, no accessory muscle use. HEART: Regular rate and rhythm, S1, S2 without murmur, rub or gallop. ABDOMEN: Soft, nontender, nondistended, normoactive bowel sounds, no guarding, no rebound, no hepatosplenomegaly, no masses. EXTREMITIES: 2+ pulses, warm, well-perfused, no edema. NEUROLOGICAL: Cranial nerves II through XII grossly intact. Normal speech, gait not observed. PSYCH: Normal mood, normal affect. SKIN: Warm, dry, normal turgor, no rashes or lesions noted. LABS HOSPITAL COURSE: Date of Admission:02/13/17 Date of Discharge: 02/15/17 ADmitting diagnosis: Acute Asthma exacerbation due to bleach exposure Pre hospital course 66 year old male, with PMH of asthma, HTN, and prostate cancer (s/p radiation in 2010), presenting with SOB and chest tightness. Patient noticed worsening chest tightness and SOB similar to what he experiences during his asthma exacerbations, after cleaning the bathroom and inhaling bleach. He had associated cough, productive of yellowish substance, non bloody. The SOB was not relieved by position, lasted for a couple of hours prior to presentation. No associated chest pain, no associated leg swelling, or fever, no recent sick contacts. No n/v/ change in bowel habits. Patient had been out in the rain 3 days earlier and had a mild precipitation that resolved on its own, without medications, but today, it did not resolve on its own. Patient has had mild asthma with his last exacerbation in September 2016 (relieved with inhaler) and prior to that, December 2015. Patient is currently not compliant on any medication. Patient has not received flu vaccine or pnuemococcal vaccine and has never had colonoscopy done. Subsequent hospital course Tele observation. monitored on cardiac montitoring due to chest pressure which was likely due to breathing difficulties. this resolved. required supplemental oxygen which improved. was started on Solumedrol and nebs RTC. evaluated by pulmonary. clinically improved. d/c home on steroid taper. Minutes to complete discharge: 40 Discharge Summary Reason For Visit: EXACERBATION OF ASTHMA Current Active Problems Asthma exacerbation (Acute) Bronchiolitis (Acute) Shortness of breath (Acute) Asthma (Chronic) HTN (hypertension) (Chronic) Prostate CA (Chronic) Condition: Improved - Instructions Diet, Activity, Other Instructions: You were admitted to the hospital due to an asthma exacerbation that seems was provoked by bleach exposure You are being sent home on a steroid taper, please use as instructed until completed. refer to instructions below You are also being sent home with an albuterol inhaler. Use this inhaler as needed. Rinse your mouth out with water after each use. Follow up with your primary care doctor next week If your symptoms worsen or develop fever (temp >101) return to the ER. Steroid Taper 02/16 take 4 tablets by mouth 02/17 take 3 tablets by mouth 02/18 take 3 tablets by mouth 02/19 take 2 tablets by mouth 02/20 take 2 tablets by mouth 02/21 take 1 tablet by mouth 02/22 take 1 tablet by mouth 02/23 You have completed your taper. Referrals: Sofi Jacob MD, MD [Primary Care Provider] - Disposition: HOME - Home Medications Comprehensive Discharge Medication List: Ambulatory Orders Nifedipine [Procardia Xl] 60 mg PO DAILY 02/12/17 Albuterol Sulfate Inhaler - [Ventolin HFA Inhaler -] 1 - 2 inh PO Q4H PRN #1 inhaler 02/15/17 Prednisone 10 mg PO DAILY #16 tablet 02/15/17 This patient is new to me today: Yes Date on this admission: 02/15/17 Emergency Visit: No Critical Care patient: No - Discharge Referral Referred to [facility] Med P.C.: No
== END 2017-02-15 12:49 | disposition home or self-care (01) | DRG 918 ==
LOC: JER 17:00 → SUPCPDRO 17:00 → JERBED 21:33 → J4W 02-13 17:00 → OBSVTOIN 02-13 17:10 → J6S 02-14 17:56
PROVIDERS: ADMIT Internal Medicine; ATTEND Internal Medicine
DX: T54.91XA Toxic effect of unspecified corrosive substance, accidental (unintentional), initial encounter (principal); J21.9 Acute bronchiolitis, unspecified; J68.3 Other acute and subacute respiratory conditions due to chemicals, gases, fumes and vapors; J45.998 Other asthma; I10 Essential (primary) hypertension; Z85.46 Personal history of malignant neoplasm of prostate; D72.828 Other elevated white blood cell count; E83.39 Other disorders of phosphorus metabolism; Y92.091 Bathroom in other non-institutional residence as the place of occurrence of the external cause
CPT/HCPCS: 36415; 71020-TC; 80053; 83735; 84100; 85025; 87040; 87070; 87205; 87633; 87804; 90670; 90688; 93005; 93010; 94150; 94640; 99284-25; G0008; G0009; G0378